=== PATIENT | male | born 1960 | race African-American/Black ===

== ENCOUNTER 2021-05-07 07:49 | Emergency (ER) | payer MEDICAID ==
[~2021-05-07] VITALS: Ht 172.7 cm; Wt 68.0 kg
[~2021-05-07 07:49] MED LIST: TERA10CA
[2021-05-07] MEDS ORDERED: flomax (07:58)
[2021-05-07 08:44] VITALS: BP 125/90
[2021-05-07 09:46] LABS: CLARITY URINE TURBID (CLEAR); COLOR URINE YELLOW (YELLOW); KETONES URINE NEGATIVE (NEGATIVE); LEUKOCYTE ESTERASE URINE 3+ (NEGATIVE); NITRITE URINE NEGATIVE (NEGATIVE); OCCULT BLOOD URINE NEGATIVE (NEGATIVE); PH URINE >=9.0 (4.5-8.0); PROTEIN URINE 4+ (NEGATIVE); SPECIFIC GRAVITY URINE 1.024 (1.005-1.030)
[2021-05-07] MEDS ORDERED: CEPH500T MT (10:33)
== END 2021-05-07 13:00 | disposition home or self-care (01) ==
LOC: ER 07:49
DX: N39.0 Urinary tract infection, site not specified (principal); I10 Essential (primary) hypertension
CPT/HCPCS: 51702; 81003; 99284